=== PATIENT | male | born 1985 | race African-American/Black ===

== ENCOUNTER 2018-09-20 | Outpatient (CLI) | payer OTHER | END 2018-09-20 13:42 | disposition home or self-care (01) | DX: R06.83 Snoring (principal); G47.10 Hypersomnia, unspecified; R51 Headache; G47.8 Other sleep disorders; G47.21 Circadian rhythm sleep disorder, delayed sleep phase type | CPT/HCPCS: 99203; 99212 ==

== ENCOUNTER 2018-10-14 19:21 | Outpatient (CLI) | payer OTHER | END 2018-10-14 19:22 | disposition home or self-care (01) | LOC: SC 19:21 | PROVIDERS: ATTEND Internal Medicine Pulmonary Disease | DX: R06.83 Snoring (principal) | CPT/HCPCS: 95810 ==

== ENCOUNTER 2018-11-04 11:16 | Outpatient (CLI) | payer OTHER ==
[2018-11-04 12:35] VITALS: BP 120/72
--- NOTE | 2018-11-04 12:35 | SLEEP CARE CONSULTATION ---
Information from patient questionnaire entered by Rosalia Whatley. I have reviewed and concur with the information entered by Rosalia Whatley. This document represents the service I personally performed and the decisions made by me, Meena Eduardo, RN, MSN, CONCRETE INSPECTOR. History of Present Illness Initial [place] Sleepiness Scale score: 15 Current [place] Sleepiness Scale score: 16 Additional HPI information: ISRAEL HENRY II returns for follow up of the recently performed polysomnography and informed of findings. I explained the pathophysiology behind obstructive sleep apnea. Patient does not have sleep apnea and was advised how weight gain could increase the risk of developing sleep apnea in the future. Patient has mild to loud snoring but no significant sleep disordered breathing . Snoring can be reduced by weight loss. He has snored even at lowest weight of 170pounds. Snoring can also be treated with an oral appliance from a dentist.Patient reports his nose feels congested most of the time. He is not taking any medications for nasal congestion. No symptoms of sneezing / coughing. Patient advised to follow up with PCP for further evaluation and treatment. In addition, an ENT evaluation can be done to see if other treatment is indicated. Patient counseled not drink alcohol less than 4 hours before bedtime as it can increase snoring and apnea. Patient was cautioned about risks of drowsy driving until sleepiness symptoms resolve. Patient reports drowsy driving. AAS patient education on snoring and sleep apnea given and reviewed as well as AAS pamphlet Dangers of drowsy driving. Patient also reports insomnia. Patient states it can take about an 1-2 hours to go to sleep. His wake time is 5:30 am on weekdays and 7;30 am weekends. And bedtime is 9:30pm weekdays and 11pm week days. Sleep Study - Polysomnography Polysomnography findings: The quality of the study is good. The patient had slightly reduced sleep efficiency due to a prolonged awakening in the middle of the night. The sleep architecture was normal.. Respiratory monitoring showed no significant sleep disordered breathing (AHI = 0.7) hypoxia (chaparro oxygen saturation of 93%). The patient slept adequately in supine position (supine AHI = 0.5; non-supine = 0.83). Snore was light to loud in intensity. There was mild periodic leg movement of sleep not associated with sleep fragmentation. Cardiac rhythm was normal sinus rhythm without significant arrhythmia. No abnormal behavior (parasomnia) observed during the night. Allergies and Home Medications Known drug allergies: No Home medication list reviewed: Yes (none) Review of Systems Review of systems same as previous: Yes Physical Exam Blood Pressure: 120/72 Cuff size: long Heart Rate: 83 O2 Saturation: 98 Height: 5 ft 9 in Weight (kg): 203 lb (with boots ) Body Mass Index: 29.9 BMI Classification: Overweight Impression and Plan 1. Snoring but no significant sleep disordered breathing. Patient has had snoring even with significantly lower weight. Since he is also reporting chronic nasal congestion which can contribute to snoring. An ENT consultation may also be helpful to determine if any other treatment is an option. Patient to followup with PCP for further evaluation and treatment of nasal congestion. He is also cautioned on risks of drowsy driving and to find alternative transportation if too tired to drive. 2. Insomnia , that could be due to things on his mind as well as difference in sleep schedule on weekdays and weekends. He also does not incorporate a relaxing ritual before bedtime. First he is advised to regulate wake time to be same all days and go to bed about 15-16 hours later but only if sleepy. He is also to incorporate a relaxing routine before bed as discussed. If unable to go to sleep in about 20 minute or so, he is to leave bedroom and engage in quiet activity until sleepy. If unable to sleep due to things on mind, he is to write out concerns as a release and then engage in quiet activity until sleepy. This process is to be repeated as often as necessary to associate bed with sleep and not frustration to get to sleep. A sleep diary diary will be kept the first 2 weeks and then a sleep log. AASM How to sleep better pamphlet given and reviewed. 3. Fatigue / excessive daytime sleepiness that could be caused by sleep disr uption from snoring, insomnia or other medical cause. Patient advised to follow up with PCP for further evaluation and treatment. He was also cautioned not to drive when tired and use other transportation if needs to get somewhere if fatigued. * Implement methods to reduce insomnia * Follow up with PCP for further evaluation of nasal congestion and fatigue * Attempt to lose weight * Avoid alcohol consumption near bedtime * The patient is cautioned about driving until sleepiness is completely resolved. * Return in 1-2 months for follow up. I spent 100% of this 40 minute visit face to face with the patient with greater than 50% of this was spent time counseling the patient and coordination of care.
== END 2018-11-04 11:17 | disposition home or self-care (01) ==
LOC: SC 11:16
PROVIDERS: ATTEND Nurse Practitioner Family
DX: R06.83 Snoring (principal); G47.00 Insomnia, unspecified; R53.83 Other fatigue; G47.10 Hypersomnia, unspecified
CPT/HCPCS: 99212; 99215

== ENCOUNTER 2018-12-28 10:17 | Outpatient (CLI) | payer OTHER ==
[2018-12-28 11:19] VITALS: BP 110/78
--- NOTE | 2018-12-28 11:19 | SLEEP CARE CONSULTATION ---
Information from patient questionnaire entered by Nakia Campbell. I have reviewed and concur with the information entered by Nakia Campbell. This document represents the service I personally performed and the decisions made by me, Meena Eduardo, RN, MSN, PARTS IDENTIFICATION TECHNICIAN. History of Present Illness Reason for follow up: other (2 month positional therapy) Prior sleep studies: Yes Year and Where: 2018 [facility] additional information: He did follow up with PCP for further evaluation of nasal congestion and no treatment given nor a referral to ENT. He continues to have nasal congestion daily with breathing through his nose. He completed a sleep diary for 2 weeks and then a sleep log. He reports he saw how his sleep schedule affected his sleep. In regards to his insomnia, he started waking up at a more regular time most days. He also incorporated the relaxing ritual before bedtime. He started to be able to initate sleep in less time about 10-15 minutes estimate. He is not looking at clock. He is still waking in middle of night to use the bathroom or unknown reason. He will sometimes be able to return to sleep in short time and other times he will be unable to fall back to sleep even after leaving bedroom to relax but unable to go back to sleep as now feels alert to go to work. He is sometimes anxious at these times - sleep diary reflects that he has stress about 2-3 times a week over the 2 week diary. He is seeing a counselor for stress that started at time of sleep study. He reports that his sleep ritual to go to bed is working most nights and when able to sleep through the night, he is feeling more rested overall. Subjective Initial [place] Sleepiness Scale score: 15 Current [place] Sleepiness Scale score: 13 Allergies and Home Medications Known drug allergies: No Home medication list reviewed: No (no meds) Review of Systems Review of systems same as previous: Yes Physical Exam Blood Pressure: 110/78 Cuff size: long Heart Rate: 69 O2 Saturation: 98 Weight: 209 lb 3.2 oz (with boots - fatigues ) Impression and Plan Snoring, but no significant disordered breathing. Patient continues to have nasal congestion and rhinorrhea. No sneezing or itchy eyes. His nasal exam reveals swollen turbinates and mild bogginess. No treatment initiated by PCP. He was advised he can try an over the counter antihistamine or a nasal steroid. He prefers the antihistamine. Since some can increase drowiness, he is advised to take at night and use the claritin / loratadine or Kiera as least drowsy effect. If no benefit , follow up with his PCP for further evaluation and treatment. He may benefit from ENT evaluation to reduce nasal congestion / snoring. Snoring can disrupt sleep and cause daytime sleepiness symptoms. 2. Insomnia, due to stress and things on mind. He is to discuss his counselor. Until then he is to leave the room and write out concerns as a release. The concerns can be discussed with counselor or destroyed. Then he is to distract the brain by reading something relaxing to him until sleepy enough to return to bed. This can repeated as often as necessary to associate bed with sleep and not frustration with sleep. He is to continue with regular sleep schedule and follow up as needed. * Continue with sleep hygiene measures * Incorporate writing out concerns if unable to fall back to sleep * Follow up with counselor as discussed * Try antihistamine. * Follow up with PCP for further evaluation of nasal congestion. * Recommend an ENT evaluation if nasal congestion persists. * Attempt to lose weight * Return for follow up as needed. I spent 100% of this 33 minute visit face to face with the patient with greater than 50% of this was spent time counseling the patient and coordination of care.
== END 2018-12-28 10:18 | disposition home or self-care (01) ==
LOC: SC 10:17
PROVIDERS: ATTEND Nurse Practitioner Family
DX: R06.83 Snoring (principal); G47.00 Insomnia, unspecified
CPT/HCPCS: 99212; 99214